=== PATIENT | male | born 1955 | race Caucasian/White ===

== ENCOUNTER 2019-01-02 13:25 | Emergency (ER) | payer MEDICARE ==
[~2019-01-02] VITALS: Ht 175.3 cm; Wt 80.0 kg
[2019-01-02] MEDS ORDERED: ketorolac tromethamine 15mg/ml inj. IM ONE (16:10)
[2019-01-02 18:12] VITALS: BP 128/64
== END 2019-01-02 18:16 | disposition home or self-care (01) ==
LOC: ER 13:26
DX: G89.29 Other chronic pain (principal); M54.5 Low back pain; M81.0 Age-related osteoporosis without current pathological fracture; Z88.8 Allergy status to other drugs, medicaments and biological substances; W18.30XA Fall on same level, unspecified, initial encounter; Y93.89 Activity, other specified; Y92.89 Other specified places as the place of occurrence of the external cause; Y99.8 Other external cause status
CPT/HCPCS: 72100; 96372; 99284; J1885

== ENCOUNTER 2025-05-04 11:54 | Emergency (ER) | payer MEDICARE ==
[~2025-05-04 11:54] MED LIST: NEOM1OIN8 TP
[2025-05-04 11:58] VITALS: BP 120/84; PULSE 69; RESP 14; O2SAT 96
[2025-05-04 14:43] LABS: MEAN PLATELET VOLUME 6.2 FL (7.4-10.4); RED CELL DISTRIBUTION WIDTH 14.1 % (11.5-14.5)
--- NOTE | 2025-05-04 15:21 | Physician Documentation ---
History of Present Illness ~ Chief Complaint: See Chief Complaint Stated Complaint: STROKE SYMPTOMS Time Seen by MD: 13:51 Primary Medical Doctor: VENITA SANTANA HPI 70-year-old male presents to the ED with a complaint of lower extremity edema and prior infections on the affected limbs. Per his saying that he is progressively getting worse and cant take care of himself. pt is newly homeless and needing a place to stay. Day of Onset: May 04, 2025 Tetanus witin 5 years: No Medication Reconciliation Allergies: Coded Allergies: nickel (Verified Allergy, Unknown, 05/04/25) Scheduled Cephalexin*Monohydrate* (Keflex*), 1 CAP PO QID Neomy Sulf/Bacitrac Zn/Poly (Triple Antibiotic Ointment), 1 APPLIC TP BID Past Medical History Past Medical History: Chronic Back Pain, Osteoporosis Past Surgical History: orthopedic surgeries Alcohol Use: None Drug Use: none Lives with: Spouse Lives In: Home Review of Systems All Other Systems at this time: Reviewed and Negative ROS As stated above in the HPI, otherwise all systems are reviewed and negative. Physical Exam Vital Signs: Temperature: 98.9, Source: Temporal, Heart Rate: 69, Respiratory Rate: 14, BP: 120/84, Pulse Oximetry: 96 Oxygen Flow Rate: 0 Physical Exam General: Alert, no apparent distress. HEENT: PERRL, EOMI, no injection, moist mucous membranes. Neck: Full range of motion. Extremities: Chronic appearing vascular insufficiency with healing wounds in mild erythema Neurologic: Oriented x4. Psychiatric: Normal mood and affect. Skin: Normal color, warm and dry. No edema, no ecchymosis. Progress Results/Orders Results/Orders Completed Orders - SANTO STEPHENS [employer] MACHINE Cbc/Diff (05/04/25 14:17) Cephalexin Capsule (Keflex Capsule) (05/04/25 15:25) Vital Signs 05/04/25 05/04/25 11:58 15:51 Temp 98.9 98.9 Pulse 69 Resp 14 B/P (MAP) 120/84 Pulse Ox 96 O2 Flow Rate 0 Laboratory Tests Test 05/04/25 14:34 White Blood Count 5.4 Red Blood Count 3.43 L Hemoglobin 10.6 L Hematocrit 30.4 L Mean Corpuscular Volume 88.8 Mean Corpuscular Hemoglobin 30.9 Mean Corpuscular Hemoglobin Concent 34.8 Red Cell Distribution Width 14.1 Platelet Count 275 Mean Platelet Volume 6.2 L Neutrophils (%) (Auto) 61.7 Lymphocytes (%) (Auto) 27.7 Monocytes (%) (Auto) 8.2 Eosinophils (%) (Auto) 1.7 Basophils (%) (Auto) 0.7 Neutrophils # (Auto) 3.3 Lymphocytes # (Auto) 1.5 Monocytes # (Auto) 0.4 Eosinophils # (Auto) 0.1 Basophils # (Auto) 0.0 CBC Comment Departure Disposition: 01 HOME / SELF CARE / HOMELESS Impression: Primary Impression: Cellulitis Condition: Stable Referrals: NO PRIMARY CARE PROVIDER (PCP) Prescriptions Cephalexin*Monohydrate* (Keflex*) 500 Mg Capsule 1 CAP PO QID, #40 CAP Prov: SANTO STEPHENS NP 05/04/25 Signature Scribe Signature: f Attestation: Scribed for Santo Stephens Communication Studies Professor by Santo Stephens - JESSE . 05/04/25 22:57 SANTO STEPHENS NP May 04, 2025 15:21
[2025-05-04] MEDS ORDERED: CEPH-585 PO (15:26)
[2025-05-04 15:51] VITALS: TEMP 98.9
== END 2025-05-04 15:53 | disposition home or self-care (01) ==
LOC: ER 11:55
DX: L03.116 Cellulitis of left lower limb (principal); L03.115 Cellulitis of right lower limb; Z59.00 Homelessness unspecified
CPT/HCPCS: 36415; 85025; 99283